=== PATIENT | female | born 1950 | race Caucasian/White ===

== ENCOUNTER 2019-01-26 07:00 | Day surgery (SDC) | payer OTHER ==
[~2019-01-26 07:00] MED LIST: B-12500 MCG PO; CLONAZEPAM1 MG PO; MYSOLINE50 MG PO; PROTONIX20 MG PO; SIMVASTATIN5 MG PO; SYNTHROID88 MCG PO
[2019-01-26] MEDS ORDERED: PERCOCET 5-3251 EACH PO (14:05)
[2019-01-26] MEDS ORDERED: COLACE100 MG PO (14:05)
== END 2019-01-26 20:10 | disposition home or self-care (01) ==
LOC: CIR.AMB 07:00
DX: K64.8 Other hemorrhoids (principal); K62.89 Other specified diseases of anus and rectum

== ENCOUNTER 2019-02-02 10:46 | Inpatient (IN) | payer OTHER ==
[~2019-02-02] VITALS: Ht 175.3 cm; Wt 79.4 kg
[~2019-02-02 10:46] MED LIST changes: +COLACE100 MG PO; +PERCOCET 5-3251 EACH PO
[2019-02-04] MEDS ORDERED: FLAGYL500MG PO (13:22)
[2019-02-04] MEDS ORDERED: ULTRACET PO (13:22)
[2019-02-04] MEDS ORDERED: CIPRO500 MG PO (13:22)
== END 2019-02-04 15:02 | disposition home or self-care (01) | DRG 392 ==
LOC: ER 10:46 → SURH 21:00
PROVIDERS: ADMIT Surgery
PROC: BW21Y0Z Computerized Tomography (CT Scan) of Abdomen and Pelvis using Other Contrast, Unenhanced and Enhanced (ICD-10-PCS; 2019-02-02)
PROC: 3E0T3BZ Introduction of Anesthetic Agent into Peripheral Nerves and Plexi, Percutaneous Approach (ICD-10-PCS; 2019-02-03)
PROC: 0DCP7ZZ Extirpation of Matter from Rectum, Via Natural or Artificial Opening (ICD-10-PCS; principal; 2019-02-03 10:00)
DX: K59.09 Other constipation (principal); T18.5XXA Foreign body in anus and rectum, initial encounter; K64.2 Third degree hemorrhoids; E03.8 Other specified hypothyroidism; K52.89 Other specified noninfective gastroenteritis and colitis; I10 Essential (primary) hypertension; K62.89 Other specified diseases of anus and rectum